=== PATIENT | female | born 1985 | race Caucasian/White ===

== ENCOUNTER 2020-01-09 13:12 | Inpatient (IN) ==
[2020-01-09] MEDS ORDERED: Ondansetron 4 MG/2 ML VIAL IVP PRN (14:28)
[2020-01-09] MEDS ORDERED: Naloxone 0.4 MG/ML INJ IVP PRN (14:28)
[2020-01-09] MEDS ORDERED: *HR* FentaNYL (PF) 100 MCG/2 ML VIAL IVP PRN (14:28)
[2020-01-09] MEDS ORDERED: Lidocaine 1% 20 ML MDV INFILT PRN (14:28)
[2020-01-09] MEDS ORDERED: Famotidine 20 MG/2 ML VIAL IVP PRN (14:28)
[2020-01-09] MEDS ORDERED: Metoclopramide 10 MG/2 ML VIAL IVP PRN (14:28)
[2020-01-09 14:51] LABS: Basophils # 0.1 K/mcL (0.0-0.2); Basophils % 0.5 %; Eosinophils % 0.4 %; Hematocrit 35.3 % (35.3-44.9); Hemoglobin 11.3 g/dL (11.5-15.4); Lymphocytes % 18.7 %; Mean Corpuscular Hemoglobin 27.2 pg (28.0-33.3); Mean Corpuscular Volume 85.1 fL (83.0-100.0); Mean Platelet Volume 10.7 fL (9.4-12.4); Monocytes # 0.5 K/mcL (0.0-1.3); Monocytes % 4.6 %; Neutrophils # 7.9 K/mcL (1.6-8.9); Platelet Count 220 K/mcL (140-400); Red Blood Count 4.15 M/mcL (3.82-4.97); Red Cell Distribution Width 13.8 % (11.5-14.5); Segmented Neutrophils % 73.8 %; White Blood Count 10.6 K/mcL (4.3-11.1)
[2020-01-09] MEDS ORDERED: EPHEDrine 50 MG/ML VIAL IVP PRN (14:55)
[2020-01-09 14:59] LABS: Amphetamine Screen,Urine Negative ng/mL (Cutoff=1000); Barbiturate Screen,Urine Negative ng/mL (Cutoff=200); Benzodiazepines Screen,Urine Negative ng/mL (Cutoff=200); Cannabinoid Screen,Urine Negative ng/mL (Cutoff = 50); Cocaine Screen,Urine Negative ng/mL (Cutoff= 300); Opiate Screen,Urine Negative ng/mL (Cutoff=300); Phencyclidine Screen,Urine Negative ng/mL (Cutoff=25)
[2020-01-09] MEDS ORDERED: miSOPROStoL 25 MCG TABLET PO ONE (15:35)
[2020-01-09] MEDS: Ringers Solution, Lactated 1,000 ML IVC SCH (15:55)
[2020-01-09] MEDS ORDERED: Acetaminophen 325 MG TABLET PO STA (21:28)
[2020-01-10] MEDS: Epidural Premix (fent/bupiv) 110 ML EP SCH (00:50)
[2020-01-10] MEDS ORDERED: Acetaminophen 325 MG TABLET PO PRN (06:27)
[2020-01-10] MEDS: Oxytocin 20 units/ LR 1000 mL 20 UNIT/1,000 ML BAG IVC SCH ×2 (06:31→23:27)
[2020-01-11] MEDS: Epidural Premix (fent/bupiv) 110 ML EP SCH (01:02)
[2020-01-11] MEDS ORDERED: Chloroprocaine/PF 20 ML VIAL INFILT ONE (02:56)
[2020-01-11] MEDS ORDERED: *HR* Oxytocin 10 UNIT/ML VIAL IM ONE (02:57)
[2020-01-11] MEDS ORDERED: Ondansetron 4 MG/2 ML VIAL ONE (03:03)
[2020-01-11] MEDS ORDERED: Azithromycin 500 MG in 0.9 % Sodium Chloride 250 ML IVPB STA (03:06)
[2020-01-11] MEDS ORDERED: *HR* Morphine Sulfate/PF 10 MG/10 ML AMPUL ONE (03:06)
[2020-01-11] MEDS ORDERED: Ringers Solution, Lactated 1,000 ML ONE (03:11)
[2020-01-11] MEDS ORDERED: *HR* Phenylephrine 10 MG/ML VIAL ONE (03:21)
[2020-01-11] MEDS ORDERED: Acetaminophen IV 1,000 MG/100 ML INFUS..BTL ONE (03:24)
[2020-01-11] MEDS ORDERED: Acetaminophen IV 1,000 MG/100 ML INFUS..BTL IVPB ONE (03:43)
[2020-01-11] MEDS ORDERED: *HR* OxyCODONE Immed Rel 5 MG TABLET PO PRN (03:43)
[2020-01-11] MEDS ORDERED: *HR* Promethazine 25 MG/ML VIAL IVP PRN (03:43)
[2020-01-11] MEDS ORDERED: *HR* HYDROmorphone PF 0.5 MG/0.5 ML SYRINGE IVP PRN (03:43)
[2020-01-11] MEDS ORDERED: Ondansetron 4 MG/2 ML VIAL IVP ONE (03:43)
[2020-01-11] MEDS ORDERED: Rho Immune Globulin 1,500 UNIT SYRINGE IM ONE (06:28)
[2020-01-11] MEDS ORDERED: Ondansetron 4 MG/2 ML VIAL IVP PRN (06:28)
[2020-01-11] MEDS ORDERED: Sennosides 8.6 MG TABLET PO PRN (06:28)
[2020-01-11] MEDS ORDERED: Simethicone 80 MG TAB.CHEW PO PRN (06:28)
[2020-01-11] MEDS ORDERED: Metoclopramide 10 MG/2 ML VIAL IVP PRN (06:28)
[2020-01-11] MEDS: Ringers Solution, Lactated 1,000 ML IVC SCH (07:27)
[2020-01-11] MEDS: *HR* OxyCODONE/APAP 5/325 TABLET PO PRN ×3 (08:22→21:00)
[2020-01-11] MEDS: Prenatal Vit/FA 1 EACH TABLET PO SCH (08:22)
[2020-01-11] MEDS: Ibuprofen 600 MG TABLET PO PRN ×2 (11:37→20:59)
[2020-01-11] MEDS: Oxytocin 20 units/ LR 1000 mL 20 UNIT/1,000 ML BAG IVC SCH (15:13)
[2020-01-12] MEDS: Ibuprofen 600 MG TABLET PO PRN ×3 (03:49→19:48)
[2020-01-12 05:20] LABS: Basophils # 0.1 K/mcL (0.0-0.2); Basophils % 0.4 %; Eosinophils # 0.2 K/mcL (0.0-0.6); Eosinophils % 1.5 %; Immature Granulocytes % 1.5 % (0-4); Lymphocytes % 13.2 %; Mean Corpuscular Hemoglobin 27.6 pg (28.0-33.3); Mean Corpuscular Volume 83.6 fL (83.0-100.0); Mean Platelet Volume 10.4 fL (9.4-12.4); Monocytes # 1.1 K/mcL (0.0-1.3); Monocytes % 6.8 %; Neutrophils # 11.8 K/mcL (1.6-8.9); Platelet Count 207 K/mcL (140-400); Red Blood Count 3.23 M/mcL (3.82-4.97); Red Cell Distribution Width 13.9 % (11.5-14.5); Segmented Neutrophils % 76.6 %; White Blood Count 15.4 K/mcL (4.3-11.1)
[2020-01-12 05:21] LABS: Hemoglobin 8.9 g/dL (11.5-15.4)
[2020-01-12] MEDS: Prenatal Vit/FA 1 EACH TABLET PO SCH (07:45)
[2020-01-12] MEDS: *HR* OxyCODONE/APAP 5/325 TABLET PO PRN ×2 (07:48→15:15)
[2020-01-12] MEDS: Ringers Solution, Lactated 1,000 ML IVC SCH ×4 (19:26→23:18)
[2020-01-12] MEDS: Oxytocin 20 units/ LR 1000 mL 20 UNIT/1,000 ML BAG IVC SCH (19:28)
[2020-01-12] MEDS: Epidural Premix (fent/bupiv) 110 ML EP SCH (19:30)
[2020-01-13] MEDS: *HR* OxyCODONE/APAP 5/325 TABLET PO PRN (03:29)
[2020-01-13 07:59] VITALS: BP 117/78
[2020-01-13] MEDS: Prenatal Vit/FA 1 EACH TABLET PO SCH (08:18)
[2020-01-13] MEDS: Ibuprofen 600 MG TABLET PO PRN (08:18)
== END 2020-01-13 10:30 | disposition home or self-care (01) ==
LOC: 1NENULAB 13:12 → 1NENUOBS 01-11 05:17
PROVIDERS: ADMIT Obstetrics & Gynecology; ATTEND Obstetrics & Gynecology

== ENCOUNTER 2022-06-25 05:45 | Inpatient (IN) ==
[2022-06-25] MEDS ORDERED: Metoclopramide 10 MG/2 ML VIAL IVP ONE ×2 (05:59→11:30)
[2022-06-25] MEDS ORDERED: Azithromycin 500 MG in 0.9 % Sodium Chloride 250 ML IVPB PRN ×2 (05:59→10:52)
[2022-06-25] MEDS ORDERED: Famotidine 20 MG/2 ML VIAL IVP ONE ×2 (05:59→11:30)
[2022-06-25] MEDS ORDERED: CeFAZolin 2,000 MG/120 ML BAG IVPB ONE (05:59)
[2022-06-25] MEDS ORDERED: Ringers Solution, Lactated 2,000 ML IVC ONE (05:59)
[2022-06-25] MEDS ORDERED: Oxytocin 30 UNIT/503 ML BAG IVC SCH ×2 (06:00→15:46)
[2022-06-25] MEDS ORDERED: Ringers Solution, Lactated 1,000 ML IVC SCH (06:00)
[2022-06-25] MEDS ORDERED: Promethazine 6.25 MG in Water for inj. (sterile) 20 ML IVPB PRN ×2 (06:48→10:52)
[2022-06-25] MEDS ORDERED: Acetaminophen IV 1,000 MG/100 ML BAG IVPB PRN (06:48)
[2022-06-25] MEDS ORDERED: *HR* Meperidine 25 MG/ML SYRINGE IVP PRN (06:48)
[2022-06-25] MEDS ORDERED: *HR* HYDROmorphone PF 0.5 MG/0.5 ML SYRINGE IVP PRN ×2 (06:48→10:52)
[2022-06-25] MEDS ORDERED: *HR* Labetalol 20 MG/4 ML SYRINGE IVP PRN (06:48)
[2022-06-25] MEDS ORDERED: *HR* Morphine Sulfate/PF 10 MG/10 ML AMPUL ONE (06:59)
[2022-06-25] MEDS ORDERED: *HR* Midazolam HCl 2 MG/2 ML VIAL ONE (06:59)
[2022-06-25] MEDS ORDERED: *HR* FentaNYL (PF) 100 MCG/2 ML VIAL ONE (07:00)
[2022-06-25] MEDS ORDERED: Ringers Solution, Lactated 1,000 ML ONE ×2 (07:00→13:40)
[2022-06-25] MEDS ORDERED: Acetaminophen IV 1,000 MG/100 ML BAG IVPB ONE (07:00)
[2022-06-25] MEDS ORDERED: EPHEDrine 50 MG/ML VIAL ONE (07:00)
[2022-06-25] MEDS ORDERED: Ondansetron 4 MG/2 ML VIAL ONE (07:01)
[2022-06-25] MEDS ORDERED: Ketorolac 30 MG/ML VIAL ONE (07:01)
[2022-06-25 09:21] LABS: Basophils % 0.4 %; Eosinophils # 0.1 K/mcL (0.0-0.6); Eosinophils % 0.8 %; Hematocrit 32.2 % (35.3-44.9); Hemoglobin 10.5 g/dL (11.5-15.4); Immature Granulocytes % 1.3 % (0-4); Lymphocytes % 20.2 %; Mean Corpuscular HGB Conc 32.6 g/dL (31.6-35.5); Mean Corpuscular Hemoglobin 26.1 pg (28.0-33.3); Mean Corpuscular Volume 79.9 fL (83.0-100.0); Mean Platelet Volume 10.2 fL (9.4-12.4); Monocytes # 0.5 K/mcL (0.0-1.3); Neutrophils # 7.3 K/mcL (1.6-8.9); Platelet Count 183 K/mcL (140-400); Red Blood Count 4.03 M/mcL (3.82-4.97); Red Cell Distribution Width 13.2 % (11.5-14.5); Segmented Neutrophils % 72.3 %; White Blood Count 10.1 K/mcL (4.3-11.1)
[2022-06-25 10:27] LABS: Amphetamine Screen,Urine Negative ng/mL (Cutoff=1000); Barbiturate Screen,Urine Negative ng/mL (Cutoff=200); Benzodiazepines Screen,Urine Negative ng/mL (Cutoff=200); Cannabinoid Screen,Urine Negative ng/mL (Cutoff = 50); Cocaine Screen,Urine Negative ng/mL (Cutoff= 300); Opiate Screen,Urine Negative ng/mL (Cutoff=300); Phencyclidine Screen,Urine Negative ng/mL (Cutoff=25)
[2022-06-25] MEDS ORDERED: *HR* OxyCODONE Immed Rel 5 MG TABLET PO PRN (15:46)
[2022-06-25] MEDS ORDERED: Ondansetron 4 MG/2 ML VIAL IVP PRN (15:46)
[2022-06-25] MEDS ORDERED: metroNIDAZOLE 500 MG TABLET PO SCH (15:46)
[2022-06-25] MEDS ORDERED: Simethicone 80 MG TAB.CHEW PO PRN (15:46)
[2022-06-25] MEDS ORDERED: Metoclopramide 10 MG/2 ML VIAL IVP PRN (15:46)
[2022-06-25] MEDS ORDERED: ceFAZolin 2,000 MG in Water for inj. (sterile) 10 ML IVP SCH (16:00)
[2022-06-25] MEDS: Ibuprofen 600 MG TABLET PO SCH (18:33)
[2022-06-25] MEDS: Acetaminophen 325 MG TABLET PO SCH (19:29)
[2022-06-25] MEDS: CeFAZolin 2,000 MG/120 ML BAG IVPB SCH (19:30)
[2022-06-26] MEDS: Acetaminophen 325 MG TABLET PO SCH ×2 (04:36→11:19)
[2022-06-26] MEDS: CeFAZolin 2,000 MG/120 ML BAG IVPB SCH ×2 (04:38→11:20)
[2022-06-26] MEDS: metroNIDAZOLE 500 MG TABLET PO SCH ×2 (04:38→08:43)
[2022-06-26] MEDS: Ibuprofen 600 MG TABLET PO SCH ×2 (04:39→08:44)
[2022-06-26 05:09] LABS: Basophils % 0.3 %; Eosinophils % 0.1 %; Hematocrit 26.7 % (35.3-44.9); Immature Granulocytes % 0.7 % (0-4); Lymphocytes # 2.1 K/mcL (0.6-4.6); Lymphocytes % 20.5 %; Mean Corpuscular HGB Conc 31.8 g/dL (31.6-35.5); Mean Corpuscular Hemoglobin 25.5 pg (28.0-33.3); Mean Corpuscular Volume 80.2 fL (83.0-100.0); Mean Platelet Volume 10.6 fL (9.4-12.4); Monocytes # 0.7 K/mcL (0.0-1.3); Monocytes % 6.8 %; Neutrophils # 7.4 K/mcL (1.6-8.9); Platelet Count 204 K/mcL (140-400); Red Blood Count 3.33 M/mcL (3.82-4.97); Red Cell Distribution Width 13.2 % (11.5-14.5); Segmented Neutrophils % 71.6 %; White Blood Count 10.3 K/mcL (4.3-11.1)
[2022-06-26 05:12] LABS: Hemoglobin 8.5 g/dL (11.5-15.4)
[2022-06-26 06:55] VITALS: PULSE 78; TEMP 98.2
[2022-06-26] MEDS ORDERED: Prenatal Vit/FA 1 EACH TABLET PO SCH (09:00)
[2022-06-26] MEDS ORDERED: NON-FORMULARY MEDICATION 1 EACH EACH (Prenatal Vitamin Tablet 1 TAB) PO SCH (09:00)
[2022-06-26 11:32] VITALS: BP 111/65; O2SAT 98
== END 2022-06-26 14:39 | disposition home or self-care (01) | DRG 788 ==
LOC: 1NENULAB 05:55 → 1NENUOBS 16:47
PROVIDERS: ADMIT Obstetrics & Gynecology; ATTEND Obstetrics & Gynecology